=== PATIENT | female | born 1990 | race Caucasian/White ===

== ENCOUNTER 2021-01-24 16:06 | Emergency (ER) | payer MEDICAID, OTHER ==
[~2021-01-24] VITALS: Ht 162.6 cm; Wt 66.7 kg
[2021-01-24 16:27] VITALS: BP 146/80
--- NOTE | 2021-01-24 16:33 | NUR ---
The patient bibs for lump side of the head x 2 days, c/o dizzy. Denies pain. Respiration regular and unlabored. Will continue to monitor for patient.
[2021-01-24] MEDS ORDERED: KETOROLAC TROMETHAMINE INJ 60 MG/2 ML VIAL IM ONE (17:00)
[2021-01-24] MEDS ORDERED: KETOROLAC TROMETHAMINE INJ 30 MG/ML VIAL ONE (17:10)
[2021-01-24] MEDS ORDERED: IBUP-1957 PO (17:57)
--- NOTE | 2021-01-24 18:06 | NUR ---
Patient discharged to home in stable condition. Written and verbal after care instructions given. Patient verbalizes understanding of instruction.
== END 2021-01-24 18:05 | disposition home or self-care (01) ==
LOC: ER 16:30
DX: R51.9 Headache, unspecified (principal); M54.2 Cervicalgia
CPT/HCPCS: 84703; 96372; 99283; J1885

== ENCOUNTER 2024-01-15 10:53 | Emergency (ER) | payer OTHER ==
[~2024-01-15] VITALS: Ht 162.6 cm; Wt 66.2 kg
[~2024-01-15 10:53] MED LIST: IBUP-1957 PO
[2024-01-15] MEDS: IV NS 0.9% 1,000 ML BAG IV ONE (11:37)
[2024-01-15 11:44] LABS: BASOPHILS % (AUTO) 0.4 % (0.0-2.0); EOSINOPHILS % (AUTO) 0.2 % (0.0-6.0); HEMATOCRIT 44 % (33-45); HEMOGLOBIN 14.8 g/dL (11.5-14.8); LYMPHOCYTES # (AUTO) 1.1 K/uL (0.8-4.8); LYMPHOCYTES % (AUTO) 20.7 % (20.0-44.0); MEAN CORPUSCULAR HEMOGLOBIN 33 PG (26.0-33.0); MEAN CORPUSCULAR HGB CONC 34 g/dl (31.0-36.0); MEAN CORPUSCULAR VOLUME 99 fL (82-100); MONOCYTES # (AUTO) 0.5 K/uL (0.1-1.30); MONOCYTES % (AUTO) 8.4 % (2.0-12.0); NEUTROPHILS # (AUTO) 3.9 K/uL (1.8-8.9); NEUTROPHILS % (AUTO) 70.3 % (43.0-81.0); PLATELET COUNT (AUTO) 227 K/uL (150-450); RED BLOOD CELL COUNT(AUTO) 4.46 MIL/uL (4.0-5.2); WHITE BLOOD COUNT (AUTO) 5.6 K/uL (4.3-11.0)
[2024-01-15 12:10] LABS: CALCIUM, SERUM 9.8 mg/dL (8.5-10.1); CARBON DIOXIDE 28 mmol/L (21-32); CHLORIDE 101 mmol/L (98-107); CREATININE 0.9 mg/dL (0.6-1.3); GLUCOSE 120 mg/dL (74-106); POTASSIUM 4.2 mmol/L (3.5-5.1); SODIUM SERUM 137 mmol/L (136-145); UREA NITROGEN, BLOOD 10 mg/dL (7-18)
[2024-01-15 12:16] LABS: ALANINE AMINOTRANSFERASE 216 U/L (12-78); ALKALINE PHOSPHATASE 85 U/L (46-116); ASPARTATE AMINOTRANSFERASE 116 U/L (15-37); BILIRUBIN,DIRECT 0.2 mg/dL (0.0-0.2); BILIRUBIN,TOTAL 0.9 mg/dL (0.2-1.0); TOTAL PROTEIN, SERUM 8.3 g/dL (6.4-8.2)
[2024-01-15 12:22] LABS: THYROID STIMULATING HORMONE 0.93 uIU/mL (0.358-3.74)
[2024-01-15 12:40] VITALS: BP 136/88; TEMP 97.8; O2SAT 97
== END 2024-01-15 13:25 | disposition home or self-care (01) ==
LOC: ER 11:00
DX: R20.2 Paresthesia of skin (principal); R42 Dizziness and giddiness; R10.2 Pelvic and perineal pain
CPT/HCPCS: 99284; 96360; 93005; 85025; 80048; 82550; 80076; 36415; 84443; 84484; 84702; J7030; A4223